=== PATIENT | male | born 1995 ===

== ENCOUNTER 2017-12-04 10:39 | Emergency (ER) | payer MEDICAID ==
[2017-12-04] MEDS ORDERED: DiphenhydrAMINE 50 mg/ml Inj IVP STA (11:31)
[2017-12-04] MEDS ORDERED: Sodium Chloride 0.9% 1,000 ML IV ONE (11:37)
[2017-12-04] MEDS ORDERED: DiphenhydrAMINE 50 mg/ml Inj ONE (11:48)
[2017-12-04 11:50] LABS: BASO % 0.4 % (0.0-2.0); EOS # 0.1 K/uL (0.0-0.7); EOS % 1.1 % (0.0-4.0); HEMOGLOBIN 14.3 g/dL (12.0-18.0); LYMPH % 39.4 % (20.0-40.0); MEAN CORPUSCULAR HEMOGLOBIN 22.1 pg (27.0-31.0); MEAN CORPUSCULAR HGB CONC 32.5 g/dL (33.0-37.0); MEAN PLATELET VOLUME 8.9 fL (7.2-11.7); MONO # 0.6 K/uL (0.0-0.8); MONO % 11.3 % (0.0-10.0); NEUT # 2.4 K/uL (1.8-7.0); NEUT % 47.8 % (50.0-75.0); NRBC % 0.1 % (0.0-2.0); RBC 6.46 Mil/uL (4.40-5.90); RED CELL DISTRIBUTION WIDTH 14.5 % (11.5-14.5)
--- NOTE | 2017-12-04 11:53 | C.PDOC ---
History Of Present Illness 22-year-old male, presents to the emergency department accompanied by girlfriend with complaints of near-syncopal episode while patient was in the shower. States he had an episode of dizziness prior to the fall, prompting visit. He is currently complaining of a generalized headache, and pain to the right side of his face, nausea and episodes of non-bloody/non-bilious vomiting. He denies abdominal pain, chest pain, shortness of breath, back pain or any other associated symptoms. No other complaints at this time. Time Seen by Provider: 12/04/17 10:41 Chief Complaint (Nursing): Syncope Past Medical History Reviewed: Historical Data, Nursing Documentation, Vital Signs Vital Signs: Last Vital Signs Temp 98.9 F 12/04/17 14:54 Pulse 91 H 12/04/17 14:54 Resp 18 12/04/17 14:54 BP 109/68 12/04/17 14:54 Pulse Ox 99 12/04/17 14:57 - Medical History PMH: HTN Family History: States: No Known Family Hx - Social History Hx Alcohol Use: No Hx Substance Use: No - Immunization History Hx Tetanus Toxoid Vaccination: No Hx Influenza Vaccination: No Hx Pneumococcal Vaccination: No Review Of Systems Constitutional: Negative for: Fever Gastrointestinal: Positive for: Nausea, Vomiting. Negative for: Abdominal Pain , Diarrhea Skin: Negative for: Rash Neurological: Positive for: Headache, Dizziness. Negative for: Weakness, Numbness Physical Exam - Physical Exam Appears: Non-toxic, No Acute Distress, Other (actively vomiting) Skin: Warm, Dry, No Rash Head: Atraumatic, Normacephalic Eye(s): bilateral: Normal Inspection Ear(s): Bilateral: Normal Nose: Normal Oral Mucosa: Moist Lips: Normal Appearing Throat: No Erythema, No Exudate Neck: Normal ROM, Supple Chest: Symmetrical Cardiovascular: Rhythm Regular, No Friction Rub, No Murmur Respiratory: Normal Breath Sounds, No Accessory Muscle Use, No Rhonchi, No Wheezing Gastrointestinal/Abdominal: Soft, No Tenderness Extremity: Normal ROM, No Deformity, No Swelling Neurological/Psych: Oriented x3, Normal Speech, Normal Motor Gait: Steady ED Course And Treatment - Laboratory Results Result Diagrams: 12/04/17 11:42 12/04/17 11:42 O2 Sat by Pulse Oximetry: 99 (on RA) Pulse Ox Interpretation: Normal (RA) - CT Scan/US CT head Other Rad Studies (CT/US): Read By Radiologist, Radiology Report Reviewed CT/US Interpretation: Accession No. : [id number]. Patient Name / ID : KIT DAILEY / [id number]. Exam Date : 12/04/2017 12:38:04 ( Approved ). Study Comment : Sex / Age : M / 22Y. Creator : Jhonatan Fernandes. Dictator : Nico Hwang MD. Pediatric Cardiologist : Metalizer : Nico Hwang MD. Approver2 : Report Date : 12/04/2017 12:42:37. My Comment : . Date of service: 12/04/2017. PROCEDURE: CT HEAD WITHOUT CONTRAST. HISTORY: headache , dizziness, vomting. COMPARISON: None available. TECHNIQUE: Axial computed tomography images were obtained through the head/brain without intravenous contrast. Radiation dose: Total exam DLP = 939 mGy-cm. This CT exam was performed using one or more of the following dose reduction techniques: Automated exposure control, adjustment of the mA and/or kV according to patient size, and/or use of iterative reconstruction technique. FINDINGS: HEMORRHAGE: No intracranial hemorrhage. BRAIN: No mass effect or edema. No atrophy or chronic microvascular ischemic changes. VENTRICLES: Unremarkable. No hydrocephalus. CALVARIUM: Unremarkable. PARANASAL SINUSES: Mild left ethmoid and right maxillary sinus mucosal thickening. MASTOID AIR CELLS: Unremarkable as visualized. No inflammatory changes. OTHER FINDINGS: None. IMPRESSION: No acute intracranial pathology. Mild sinus disease as described above. Disposition - Disposition Referrals: Viviana Liz MD [Medical Doctor] - Disposition: HOME/ ROUTINE Disposition Time: 14:50 Condition: STABLE Additional Instructions: Follow up with the medical doctor within 1-2 days. Return if worsened. Prescriptions: Ibuprofen [Motrin] 600 mg PO TID #21 tab Meclizine HCl 25 mg PO TID PRN #25 tablet PRN Reason: Dizziness Instructions: Vertigo (a Type of Dizziness) (DC) Forms: [employer] ([place]) - POA Present On Arrival: None - Clinical Impression Clinical Impression: Headache, Dizziness - Scribe Statement The provider has reviewed the documentation as recorded by the Scribe (Fabi Nesbitt) All medical record entries made by the Scribe were at my direction and personally dictated by me. I have reviewed the chart and agree that the record accurately reflects my personal performance of the history, physical exam, medical decision making, and the department course for this patient. I have also personally directed, reviewed, and agree with the discharge instructions and disposition.
[2017-12-04 12:00] LABS: ALB/GLOB RATIO 1.2 (1.0-2.1); ALBUMIN 4.6 g/dL (3.5-5.0); ALT/SGPT 40 U/L (21-72); AST/SGOT 26 U/L (17-59); BLOOD UREA NITROGEN 11 mg/dL (9-20); CALCIUM 9.9 mg/dl (8.6-10.4); GFR NON-AFRICAN AMERICAN > 60
--- NOTE | 2017-12-04 12:51 | CT ---
Date of service: 12/04/2017 PROCEDURE: CT HEAD WITHOUT CONTRAST. HISTORY: headache, dizziness, vomting COMPARISON: None available. TECHNIQUE: Axial computed tomography images were obtained through the head/brain without intravenous contrast. Radiation dose: Total exam DLP = 939 mGy-cm. This CT exam was performed using one or more of the following dose reduction techniques: Automated exposure control, adjustment of the mA and/or kV according to patient size, and/or use of iterative reconstruction technique. FINDINGS: HEMORRHAGE: No intracranial hemorrhage. BRAIN: No mass effect or edema. No atrophy or chronic microvascular ischemic changes. VENTRICLES: Unremarkable. No hydrocephalus. CALVARIUM: Unremarkable. PARANASAL SINUSES: Mild left ethmoid and right maxillary sinus mucosal thickening. MASTOID AIR CELLS: Unremarkable as visualized. No inflammatory changes. OTHER FINDINGS: None. IMPRESSION: No acute intracranial pathology. Mild sinus disease as described above.
[2017-12-04 14:54] VITALS: BP 109/68; PULSE 91; RESP 18; TEMP 98.9
[2017-12-04 14:56] VITALS: O2SAT 99
--- NOTE | 2017-12-05 08:53 | CARD ---
APPROVED REPORT Date of service: 12/04/2017 EKG Measurement Heart [id number] <Conclusion> Sinus tachycardia Rightward axis Borderline ECG
== END 2017-12-04 15:06 | disposition home or self-care (01) ==
LOC: C.ER 10:39
DX: R51 Headache (principal); R42 Dizziness and giddiness
CPT/HCPCS: 70450; 80053; 82948; 85025; 85378; 93005; 96361; 96374; 96375; 99285; J1200; J2765; J7030